=== PATIENT | male | born 1995 | race Caucasian/White ===

== ENCOUNTER 2021-06-19 23:31 | Inpatient (IN) | payer BC ==
[~2021-06-19] VITALS: Ht 193 cm; Wt 102.3 kg
[2021-06-19] MEDS ORDERED: PROCHLORPERAZINE 10MG/2ML INJ ONE (23:48)
[2021-06-19] MEDS ORDERED: MORPHINE 5 MG/ML VIAL (5MG OR GREATER DOSE) ONE (23:50)
[2021-06-19 23:55] LABS: BASOPHILS % (AUTO) 0.6 % (0.0-5.0); HEMATOCRIT 42.9 % (42-54); LYMPHOCYTES % (AUTO) 22.6 % (21.0-51.0); MEAN CORPUSCULAR HEMOGLOBIN 30.3 pg (27.0-33.0); MEAN CORPUSCULAR HGB CONC 35.2 g/dL (32.0-36.0); MONOCYTES % (AUTO) 11.4 % (3.0-13.0); NEUTROPHILS % (AUTO) 63.3 % (40.0-77.0); PLATELET COUNT (AUTO) 148 K/uL (130-400); RED BLOOD CELL COUNT(AUTO) 4.99 MIL/uL (4.50-6.20); RED CELL DISTRIBUTION WIDTH 11.4 % (11.0-15.5)
[2021-06-19] MEDS ORDERED: KETOROLAC 30MG VIAL (30MG/ML) ONE (23:55)
[2021-06-20] VITALS (13 sets, daily range): BP systolic 123–147; BP diastolic 77–89
[2021-06-20] MEDS ORDERED: 0.9%NACL 1000ML 1,000 ML IV ONE
[2021-06-20] MEDS ORDERED: KETOROLAC 30MG VIAL (30MG/ML) IV ONE
[2021-06-20] MEDS ORDERED: PROCHLORPERAZINE EDISYLATE 5 MG/ML 2 ML VIAL IVP ONE
[2021-06-20 00:06] LABS: CREATININE 1.2 mg/dL (0.5-1.5); POTASSIUM 3.9 mmol/L (3.5-5.1)
[2021-06-20 00:11] LABS: ALBUMIN 4.2 g/dL (3.5-5.0); BILIRUBIN,TOTAL 1.5 mg/dL (0.2-1.0); TOTAL PROTEIN, SERUM 7.9 g/dL (6.0-8.3)
[2021-06-20] MEDS ORDERED: ONDANSETRON 4MG INJ ONE (00:18)
[2021-06-20] MEDS ORDERED: ONDANSETRON 4MG INJ IVP ONE (00:30)
[2021-06-20] MEDS ORDERED: MORPHINE 5 MG/ML VIAL (5MG OR GREATER DOSE) IV ONE ×2 (00:30)
[2021-06-20] MEDS ORDERED: FENTANYL CITRATE PF 50 MCG/1 ML 2ML VIAL ONE ×4 (01:00→22:05)
[2021-06-20] MEDS ORDERED: FAMOTIDINE 20MG VIAL IV ONE (01:00)
[2021-06-20] MEDS ORDERED: FENTANYL CITRATE PF 50 MCG/1 ML 2ML VIAL IVP ONE ×2 (01:30)
[2021-06-20] MEDS ORDERED: LACTATED RINGERS 1000ML 1,000 ML IV SCH (04:30)
[2021-06-20] MEDS ORDERED: HYDROMORPHONE 0.5 MG SYG (0.5MG/0.5ML) ONE ×2 (04:50→08:23)
[2021-06-20] MEDS ORDERED: ONDANSETRON 4MG INJ IVP PRN (05:00)
[2021-06-20] MEDS ORDERED: HYDROMORPHONE 0.5 MG SYG (0.5MG/0.5ML) IVP PRN (05:00)
[2021-06-20] MEDS: LACTATED RINGERS 1000ML 1,000 ML IV SCH (06:01)
[2021-06-20 06:58] LABS: HEMATOCRIT 43.2 % (42-54); MEAN CORPUSCULAR HEMOGLOBIN 30.3 pg (27.0-33.0); MEAN CORPUSCULAR HGB CONC 35.2 g/dL (32.0-36.0); MEAN CORPUSCULAR VOLUME 86.1 fL (79-99); RED BLOOD CELL COUNT(AUTO) 5.02 MIL/uL (4.50-6.20); RED CELL DISTRIBUTION WIDTH 11.5 % (11.0-15.5); WHITE BLOOD COUNT (AUTO) 7.1 K/uL (4.8-10.8)
[2021-06-20] MEDS ORDERED: MAGNESIUM 2GM PREMIX 50ML 50 ML IV PRN (07:00)
[2021-06-20 07:14] LABS: MAGNESIUM 2.1 mg/dL (1.80-2.40); POTASSIUM 4.3 mmol/L (3.5-5.1)
[2021-06-20] MEDS ORDERED: FENTANYL CITRATE PF 50 MCG/1 ML 2ML VIAL IVP PRN (07:30)
[2021-06-20] MEDS: METOCLOPRAMIDE 10 MG/2 ML VIAL IVP SCH ×3 (08:01→16:11)
[2021-06-20] MEDS: LACTULOSE 20 GM/30 ML UDCUP NG SCH ×3 (08:01→20:59)
[2021-06-20] MEDS: FAMOTIDINE 20MG VIAL IV SCH ×2 (08:01→21:10)
[2021-06-20] MEDS: ONDANSETRON 4MG INJ IVP PRN ×2 (08:26→15:15)
[2021-06-20] MEDS: HEPARIN 5,000 UNIT VIAL SQ SCH ×2 (08:46→19:00)
[2021-06-20] MEDS: HYDROMORPHONE 0.5 MG SYG (0.5MG/0.5ML) IVP PRN ×3 (08:50→16:22)
[2021-06-20 10:23] LABS: APPEARANCE,URINE Clear (CLEAR); BILIRUBIN,URINE Negative (NEGATIVE); COLOR,URINE Yellow (YELLOW); GLUCOSE, URINE (UA) Negative (NEGATIVE); KETONES,URINE Negative (NEGATIVE); LEUKOCYTE ESTERASE ,URINE Negative (NEGATIVE); NITRATE,URINE Negative (NEGATIVE); OCCULT BLOOD,URINE Negative (NEGATIVE); PH,URINE 6.5 (5.0-8.0); PROTEIN,URINE Negative (NEGATIVE)
[2021-06-20 13:46] LABS: AMPHET/METH SCREEN,URINE NEGATIVE (NEGATIVE); BARBITURATE SCREEN, URINE NEGATIVE (NEGATIVE); BENZODIAZEPINES SCREEN,URINE NEGATIVE (NEGATIVE); CANNABINOID SCREEN,URINE NEGATIVE (NEGATIVE); COCAINE SCREEN,URINE NEGATIVE (NEGATIVE); OPIATE SCREEN,URINE POSITIVE (NEGATIVE); PHENCYCLIDINE SCREEN,URINE NEGATIVE (NEGATIVE)
[2021-06-20] MEDS: KETOROLAC 15MG/ML VIAL (15MG/ML) IV PRN (15:15)
[2021-06-20] MEDS ORDERED: HYDROMORPHONE 0.5 MG SYG (0.5MG/0.5ML) IVP SCH (18:30)
[2021-06-20] MEDS ORDERED: IOHEXOL 350 MG/ML 100ML INFUS..BTL IV ONE (18:32)
[2021-06-20 20:52] LABS: INR 1.14 (0.85-1.15); PROTHROMBIN TIME 12.3 SEC (9.6-11.6)
[2021-06-20 20:54] LABS: PARTIAL THROMBOPLASTIN TIME 27.2 SEC (26.3-35.5)
[2021-06-20] MEDS ORDERED: LIDOCAINE HCL MPF 1% 5ML VIAL ONE (21:13)
[2021-06-20] MEDS ORDERED: MIDAZOLAM HCL 1 MG/ML 2ML VIAL ONE ×2 (21:14→21:38)
[2021-06-20] MEDS ORDERED: PROPOFOL 10 MG/ML 20ML VIAL IV ONE (21:14)
[2021-06-20] MEDS ORDERED: ROCURONIUM 10MG/1ML SYR 10 MG/ML ML ONE ×2 (21:14→22:03)
[2021-06-20] MEDS ORDERED: LIDOCAINE HCL 1% MDV 50ML VIAL ONE (21:28)
[2021-06-20] MEDS ORDERED: BUPIVACAINE/PF 0.25% 30ML VIAL IJ ONE (21:28)
[2021-06-20] MEDS ORDERED: CLINDAMYCIN IVPB 900MG/50ML 50 ML IV ONE (21:34)
[2021-06-20] MEDS ORDERED: MEPERIDINE-PF 25 MG/ML SYG ONE (23:21)
[2021-06-20] MEDS ORDERED: PROCHLORPERAZINE 10MG/2ML INJ IV ONE (23:59)
[2021-06-21] VITALS (11 sets, daily range): BP systolic 128–139; BP diastolic 71–92
[2021-06-21] MEDS ORDERED: HEPARIN 5,000 UNIT VIAL SQ PRN (01:00)
[2021-06-21 01:02] LABS: BASOPHILS % (AUTO) 0.4 % (0.0-5.0); EOSINOPHILS % (AUTO) 0.2 % (0.0-8.0); HEMATOCRIT 46.2 % (42-54); LYMPHOCYTES % (AUTO) 13.7 % (21.0-51.0); MEAN CORPUSCULAR HEMOGLOBIN 29.6 pg (27.0-33.0); MONOCYTES % (AUTO) 14.2 % (3.0-13.0); NEUTROPHILS % (AUTO) 71.5 % (40.0-77.0); PLATELET COUNT (AUTO) 158 K/uL (130-400); RED BLOOD CELL COUNT(AUTO) 5.31 MIL/uL (4.50-6.20); RED CELL DISTRIBUTION WIDTH 11.6 % (11.0-15.5); WHITE BLOOD COUNT (AUTO) 4.7 K/uL (4.8-10.8)
[2021-06-21] MEDS: KETOROLAC 15MG/ML VIAL (15MG/ML) IV PRN ×3 (01:08→15:20)
[2021-06-21] MEDS: HEPARIN 25,000 UNITS/250ML D5W 250 ML IV SCH ×2 (01:10→15:27)
[2021-06-21 01:18] LABS: ALBUMIN 3.9 g/dL (3.5-5.0); BILIRUBIN,TOTAL 2.4 mg/dL (0.2-1.0); CREATININE 1.5 mg/dL (0.5-1.5); MAGNESIUM 1.7 mg/dL (1.80-2.40); POTASSIUM 4.1 mmol/L (3.5-5.1); TOTAL PROTEIN, SERUM 7.4 g/dL (6.0-8.3)
[2021-06-21] MEDS: HYDROMORPHONE 0.5 MG SYG (0.5MG/0.5ML) IVP PRN ×5 (03:19→23:20)
[2021-06-21] MEDS: LACTATED RINGERS 1000ML 1,000 ML IV SCH ×3 (04:33→18:33)
[2021-06-21] MEDS: METOCLOPRAMIDE 10 MG/2 ML VIAL IVP SCH ×3 (06:32→17:00)
[2021-06-21 07:44] LABS: INR 1.23 (0.85-1.15); PROTHROMBIN TIME 13.2 SEC (9.6-11.6)
[2021-06-21 07:45] LABS: PARTIAL THROMBOPLASTIN TIME 82.6 SEC (26.3-35.5)
[2021-06-21] MEDS: LACTULOSE 20 GM/30 ML UDCUP NG SCH ×2 (09:11→21:59)
[2021-06-21] MEDS: FAMOTIDINE 20MG VIAL IV SCH ×2 (09:11→21:59)
[2021-06-21] MEDS: ONDANSETRON 4MG INJ IVP PRN ×2 (12:28→23:13)
[2021-06-22] VITALS (7 sets, daily range): BP systolic 127–147; BP diastolic 76–90
[2021-06-22] MEDS: LACTATED RINGERS 1000ML 1,000 ML IV SCH (03:29)
[2021-06-22 04:11] LABS: BASOPHILS % (AUTO) 0.9 % (0.0-5.0); EOSINOPHILS % (AUTO) 0.5 % (0.0-8.0); HEMATOCRIT 41.6 % (42-54); LYMPHOCYTES % (AUTO) 13.4 % (21.0-51.0); MEAN CORPUSCULAR HEMOGLOBIN 29.3 pg (27.0-33.0); MEAN CORPUSCULAR HGB CONC 32.9 g/dL (32.0-36.0); MEAN CORPUSCULAR VOLUME 88.9 fL (79-99); MONOCYTES % (AUTO) 23.5 % (3.0-13.0); NEUTROPHILS % (AUTO) 60.3 % (40.0-77.0); PLATELET COUNT (AUTO) 128 K/uL (130-400); RED BLOOD CELL COUNT(AUTO) 4.68 MIL/uL (4.50-6.20); RED CELL DISTRIBUTION WIDTH 11.9 % (11.0-15.5); WHITE BLOOD COUNT (AUTO) 6.6 K/uL (4.8-10.8)
[2021-06-22 04:28] LABS: CREATININE 1.3 mg/dL (0.5-1.5)
[2021-06-22 05:06] LABS: PLATELET MORPHOLOGY PLT CLUMPS PRESENT
[2021-06-22] MEDS: ONDANSETRON 4MG INJ IVP PRN ×3 (06:17→23:16)
[2021-06-22] MEDS: METOCLOPRAMIDE 10 MG/2 ML VIAL IVP SCH ×3 (06:18→17:10)
[2021-06-22] MEDS: HYDROMORPHONE 0.5 MG SYG (0.5MG/0.5ML) IVP PRN ×2 (06:49→21:00)
[2021-06-22] MEDS: FAMOTIDINE 20MG VIAL IV SCH ×2 (10:00→21:00)
[2021-06-22] MEDS: LACTULOSE 20 GM/30 ML UDCUP NG SCH ×2 (10:00→21:00)
[2021-06-22] MEDS: KETOROLAC 15MG/ML VIAL (15MG/ML) IV PRN ×3 (10:25→23:16)
[2021-06-23] MEDS: LACTATED RINGERS 1000ML 1,000 ML IV SCH ×3 (01:14→09:17)
[2021-06-23 04:16] VITALS: BP 129/64
[2021-06-23 04:30] LABS: HEMATOCRIT 36.1 % (42-54); MEAN CORPUSCULAR HEMOGLOBIN 29.8 pg (27.0-33.0); MEAN CORPUSCULAR HGB CONC 33.2 g/dL (32.0-36.0); MEAN CORPUSCULAR VOLUME 89.6 fL (79-99); RED BLOOD CELL COUNT(AUTO) 4.03 MIL/uL (4.50-6.20); RED CELL DISTRIBUTION WIDTH 11.7 % (11.0-15.5); WHITE BLOOD COUNT (AUTO) 5.6 K/uL (4.8-10.8)
[2021-06-23 04:52] LABS: CREATININE 1.2 mg/dL (0.5-1.5); POTASSIUM 3.7 mmol/L (3.5-5.1)
[2021-06-23] MEDS: KETOROLAC 15MG/ML VIAL (15MG/ML) IV PRN ×3 (05:21→20:57)
[2021-06-23] MEDS: METOCLOPRAMIDE 10 MG/2 ML VIAL IVP SCH ×2 (06:09→13:21)
[2021-06-23 08:00] VITALS: BP 130/70
[2021-06-23] MEDS: FAMOTIDINE 20MG VIAL IV SCH ×2 (09:16→20:47)
[2021-06-23 12:00] VITALS: BP 130/73
[2021-06-23 16:00] VITALS: BP 135/75
[2021-06-23 20:00] VITALS: BP 143/84
[2021-06-23] MEDS ORDERED: LACTULOSE 20 GM/30 ML UDCUP NG PRN (21:00)
[2021-06-24] VITALS: BP 146/83
[2021-06-24] MEDS: LACTATED RINGERS 1000ML 1,000 ML IV SCH ×3 (02:34→12:49)
[2021-06-24 04:00] VITALS: BP 137/90
[2021-06-24 04:14] LABS: HEMATOCRIT 33.6 % (42-54); MEAN CORPUSCULAR HEMOGLOBIN 29.6 pg (27.0-33.0); MEAN CORPUSCULAR HGB CONC 33.9 g/dL (32.0-36.0); MEAN CORPUSCULAR VOLUME 87.3 fL (79-99); RED BLOOD CELL COUNT(AUTO) 3.85 MIL/uL (4.50-6.20); RED CELL DISTRIBUTION WIDTH 11.4 % (11.0-15.5); WHITE BLOOD COUNT (AUTO) 8.3 K/uL (4.8-10.8)
[2021-06-24 04:24] LABS: CREATININE 1.1 mg/dL (0.5-1.5); POTASSIUM 3.4 mmol/L (3.5-5.1)
[2021-06-24] MEDS: METOCLOPRAMIDE 10 MG/2 ML VIAL IVP SCH ×2 (06:57→10:40)
[2021-06-24 08:00] VITALS: BP 129/72
[2021-06-24] MEDS: FAMOTIDINE 20MG VIAL IV SCH (09:16)
[2021-06-24 11:37] VITALS: BP 130/75
[2021-06-24] MEDS ORDERED: GABA-529 PO (13:47)
== END 2021-06-24 14:50 | disposition home or self-care (01) | DRG 357 ==
LOC: EDH 23:31 → EDHIP 06-20 02:30 → OBSVTOIN 06-20 02:30 → 3DH 06-20 04:35
PROVIDERS: ADMIT Internal Medicine Critical Care Medicine; ATTEND Internal Medicine Critical Care Medicine
PROC: 0DJV0ZZ Inspection of Mesentery, Open Approach (ICD-10-PCS; principal; 2021-06-20 22:10)
PROC: 0D9670Z Drainage of Stomach with Drainage Device, Via Natural or Artificial Opening (ICD-10-PCS; 2021-06-20 22:10)
DX: K56.2 Volvulus (principal); D62 Acute posthemorrhagic anemia; Z20.822 Contact with and (suspected) exposure to COVID-19; Z79.899 Other long term (current) drug therapy; Z98.84 Bariatric surgery status; Z87.19 Personal history of other diseases of the digestive system; Z88.0 Allergy status to penicillin
CPT/HCPCS: 36415; 71045; 74018; 74174; 74176; 80048; 80053; 80305; 81003; 82150; 82550; 83690; 83735; 83874; 84145; 84484; 85025; 85027; 85610; 85730; 86677; 86850; 86900; 86901; 87635; 93005; A4344; A4606; G0378; J0780; J1170; J1644; J1885; J2175; J2250; J2270; J2405; J2704; J2765; J3010; J3475; J3490; J7030; J7120; Q9967